=== PATIENT | female | born 1960 | race Hispanic/Latino ===

== ENCOUNTER 2018-06-30 09:15 | Emergency (ER) | payer MEDICAID ==
[~2018-06-30] VITALS: Ht 160 cm; Wt 100.0 kg
[~2018-06-30 09:15] MED LIST: (None)3.5 GM OP; ALL DAY10 MG PO; AMOXICILLIN500 MG PO; BACTRIM DS1 TAB PO; BENICAR40 MG PO; CEPHALEXIN500 MG PO; CETIRIZ/PSE1 TAB PO; COMBIGAN0.2 MG/0.5 OU; DOXYCYCL HYC100 M4 PO; FLEXERIL PO; GENTAMICIN15 ML/BTL OP; GLYBURIDE5 M1 PO; GLYBURIDE5 MG PO; HUMALOG100 MG/ML SC; INVOKANA100 MG PO; INVOKANA300 MG PO; LANTUS100 MG/ML SC; LEVEMIR SC; LEVOTHYROXIN100 MC1 PO; LEVOTHYROXIN50 MCG PO; LIPITOR40 M1 PO; LORTAB 10 PO; Levaquin PO; METFORMIN1000 MG PO; METFORMIN850 MG PO; NAPROSYN500 MG PO; RESTASIS0.05 % OP; ROCEPHIN 1 GM1 GM IV; SYSTANE CONTACTS SOO OU; TESSALON PER100 MG PO; TIMOLOL 0.5%5 ML OP; TRADJENTA5 MG PO; TRAVATAN0.0041 OP; UNKNOWN HTN MED; UROCIT-K 15 PO; XALATAN0.005 % OP; ZITHROMAX250 MG PO
[2018-06-30] MEDS ORDERED: ULTRAM50 M1 PO (10:12)
[2018-06-30] MEDS ORDERED: AMOXICILLIN500 MG PO (10:12)
[2018-06-30] MEDS ORDERED: FLONASE AL50 MCG/ACT (10:12)
[2018-06-30 10:16] VITALS: BP 166/90
== END 2018-06-30 10:22 | disposition home or self-care (01) ==
LOC: ED 09:15
DX: J02.9 Acute pharyngitis, unspecified (principal); S92.512A Displaced fracture of proximal phalanx of left lesser toe(s), initial encounter for closed fracture; I10 Essential (primary) hypertension; E11.9 Type 2 diabetes mellitus without complications; Z90.5 Acquired absence of kidney; W22.8XXA Striking against or struck by other objects, initial encounter; R05 Cough; R09.81 Nasal congestion

== ENCOUNTER 2019-10-06 10:38 | Emergency (ER) | payer MEDICAID ==
[~2019-10-06] VITALS: Ht 160 cm; Wt 100.0 kg
[~2019-10-06 10:38] MED LIST changes: +FLONASE AL50 MCG/ACT; +ULTRAM50 M1 PO
[2019-10-06 12:44] VITALS: BP 176/88
== END 2019-10-06 12:46 | disposition home or self-care (01) ==
LOC: ED 10:38
DX: M25.562 Pain in left knee (principal); E11.9 Type 2 diabetes mellitus without complications; I10 Essential (primary) hypertension; Z79.4 Long term (current) use of insulin

== ENCOUNTER 2020-05-21 20:03 | Observation (INO) | payer MEDICAID ==
[~2020-05-21] VITALS: Ht 157.5 cm; Wt 100.5 kg
[2020-05-21 21:25] LABS: HEMATOCRIT 37.1 % (37.0-47.0); HEMOGLOBIN 12.5 g/dl (12.0-16.0); IMMATURE GRANULOCYTES 0.4 % (0.0-5.0); MEAN CELL VOLUME 90.5 fL CALC (80.0-100.0); MEAN CORPUSCULAR HGB 30.5 pG CALC (26.0-32.0); MEAN CORPUSCULAR HGB CONC 33.7 g/dL CAL (32.0-36.0); NEUT# 14.27 thou/uL (2.00-7.15); RED BLOOD COUNT 4.1 mill/uL (4.20-5.60); RED CELL DISTRI WIDTH 12.9 % (11.5-15.5)
[2020-05-21 21:29] LABS: URINE BILIRUBIN - DIPSTICK NEGATIVE (NEGATIVE); URINE BLOOD DIPSTICK NEGATIVE (NEGATIVE); URINE COLOR YELLOW; URINE GLUCOSE - DIPSTICK 500 mg/dL (NEGATIVE); URINE KETONE NEGATIVE (NEGATIVE); URINE LEUK ESTERASE TRACE (NEGATIVE); URINE PROTEIN - DIPSTICK NEGATIVE (NEG-TRACE); URINE UROBILINOGEN - DIPSTICK 0.2 E.U./dL (0.2)
[2020-05-21 21:33] LABS: URINE NITRITE - DIPSTICK POSITIVE (Negative)
[2020-05-21 21:39] LABS: ALBUMIN 4.1 g/dL (3.2-5.0); ALKALINE PHOSPHATASE 162 u/l (38-126); BUN 21 mg/dL (8-23); BUN/CREATININE RATIO 22 (12-20 (CALC)); CARBON DIOXIDE 23 mmol/l (22-30); CHLORIDE 98 mmol/l (95-108); GFR 56 ML/MIN (>=60 (CALC)); GFR FOR AFR.AMER. > 60 ML/MIN (>=60 (CALC)); POTASSIUM 4.4 mmol/l (3.5-5.1); SGOT/AST 49 u/l (9-36); TOTAL PROTEIN 7.1 g/dL (6.3-8.2)
[2020-05-21 21:40] LABS: ANION GAP 14 (6-22 (CALC)); BILIRUBIN, TOTAL 0.7 mg/dL (0.0-1.4); SODIUM 131 mmol/l (137-146)
[2020-05-21 21:45] LABS: URINE BACTERIA RARE hpf; URINE SQUAMOUS EPITHELIAL CELL FEW EPI/hpf (0-FEW)
[2020-05-21 23:22] VITALS: BP 120/72
[2020-05-22 04:00] VITALS: BP 108/66
[2020-05-22 07:15] VITALS: BP 110/68
[2020-05-22 08:46] VITALS: BP 110/68
[2020-05-22] MEDS ORDERED: BACTRIM DS1 TAB PO (11:12)
== END 2020-05-22 12:57 | disposition home or self-care (01) ==
LOC: ED 20:03 → ED-I 22:20 → ED 22:30 → MS2 22:31
PROVIDERS: Family Medicine; ADMIT Internal Medicine; ATTEND Internal Medicine
DX: E11.628 Type 2 diabetes mellitus with other skin complications (principal); L03.115 Cellulitis of right lower limb; N39.0 Urinary tract infection, site not specified; E11.42 Type 2 diabetes mellitus with diabetic polyneuropathy; I10 Essential (primary) hypertension; E03.9 Hypothyroidism, unspecified; E78.5 Hyperlipidemia, unspecified; B96.20 Unspecified Escherichia coli [E. coli] as the cause of diseases classified elsewhere; Z90.5 Acquired absence of kidney; Z79.4 Long term (current) use of insulin; Z20.822 Contact with and (suspected) exposure to COVID-19
CPT/HCPCS: G0378; J1650

== ENCOUNTER 2024-04-29 19:44 | Emergency (ER) | payer MEDICARE, MEDICAID ==
[~2024-04-29] VITALS: Ht 157.5 cm; Wt 99.0 kg
[~2024-04-29 19:44] MED LIST changes: +ALLERGY RELIEF180 M1 PO; +AMOXICILLIN875 MG PO; +CORTISPORIN OTI10 M2 AD; +CRESTOR20 MG PO; +GABAPENTIN100 MG PO; +HYZAAR1 TA2 PO; +JARDIANCE25 MG PO; +ROBITUSSIN AC10 ML PO; +TAM75CAP PO
[2024-04-29] MEDS ORDERED: KETOROLAC TROMETHAMINE 30 MG/ML SDV IM ONE (20:35)
[2024-04-29] MEDS ORDERED: traMADol HCL 50 MG/TAB PO ONE (20:35)
[2024-04-29] MEDS ORDERED: ACETAMINOPHEN 500 MG TAB PO ONE (20:35)
[2024-04-29 22:09] LABS: URINE BILIRUBIN - DIPSTICK Negative (NEGATIVE); URINE BLOOD DIPSTICK Negative (NEGATIVE); URINE GLUCOSE - DIPSTICK Negative (NEGATIVE); URINE KETONE Negative (NEGATIVE); URINE NITRITE - DIPSTICK Negative (Negative); URINE PH 5.5 (4.5-8.0); URINE PROTEIN - DIPSTICK Negative (NEG-TRACE); URINE SPECIFIC GRAVITY 1.025; URINE UROBILINOGEN - DIPSTICK 0.2 E.U./dL (0.2)
[2024-04-29 22:10] LABS: URINE COLOR Yellow; URINE LEUK ESTERASE Moderate (NEGATIVE)
[2024-04-29 22:15] LABS: URINE WBC 20-50 WBC/hpf (0-5)
[2024-04-29 22:16] LABS: URINE BACTERIA MODERATE hpf; URINE RBC 0-2 RBC/hpf (0-5); URINE SQUAMOUS EPITHELIAL CELL MODERATE EPI/hpf (0-FEW)
[2024-04-29] MEDS ORDERED: VOLTAREN - GENE75 MG PO (22:30)
[2024-04-29 22:59] VITALS: BP 113/60
== END 2024-04-29 23:17 | disposition home or self-care (01) ==
LOC: ED 19:44
PROVIDERS: Family Medicine
DX: S39.012A Strain of muscle, fascia and tendon of lower back, initial encounter (principal); I10 Essential (primary) hypertension; E11.9 Type 2 diabetes mellitus without complications; X50.0XXA Overexertion from strenuous movement or load, initial encounter; Z90.5 Acquired absence of kidney; Z79.84 Long term (current) use of oral hypoglycemic drugs